=== PATIENT | female | born 1955 | race Caucasian/White ===

== ENCOUNTER 2024-02-26 14:58 | Inpatient (IN) | payer MEDICARE, OTHER, SELFPAY ==
[2024-02-26 06:31] VITALS: BP 149/66
[2024-02-26 07:04] LABS: % Basophils 0.4 % (0-2); % Eosinophils 0.1 % (0-6); % Immature Granulocytes 0.4 % (0-0.5); % Lymphocytes 11.1 % (20.5-51.1); % Monocytes 4.9 % (1.7-9.3); % Neutrophils 83.1 % (42.2-75.2); Absolute Lymphocytes 0.9 10^3/uL (1.2-3.4); Absolute Monocytes 0.4 10^3/uL (0.1-0.6); Absolute Neutrophils 6.6 10^3/uL (1.4-6.5); Hematocrit 40.9 % (37.0-47.0); Hemoglobin 13.6 g/dL (12.0-16.0); Mean Corp Hgb Conc. 33.3 g/dL (33.0-37.0); Mean Corpuscular Hgb 30.5 pg (27.0-31.0); Mean Corpuscular Volume 91.7 fL (81.0-99.0); Mean Platelet Volume 11.6 fL (7.4-10.4); Nucleated Red Blood Cells % 0 %; Platelet Count 190 10^3/uL (130-400); Red Blood Cell Count 4.46 10^6/uL (4.20-5.40); Red Cell Dist. Width 13.4 % (11.5-14.5)
[2024-02-26 07:16] LABS: ALT (SGPT) 21 U/L (0-35); AST (SGOT) 27 U/L (14-36); Alkaline Phosphatase 93 U/L (38-126); Blood Urea Nitrogen 12 mg/dl (7-17); Calcium 10.1 mg/dl (8.4-10.2); Carbon Dioxide 22 mmol/L (22-30); Chloride 102 mmol/L (98-107); Glucose 134 mg/dl (70-99); Potassium 3.9 mmol/L (3.5-5.1); Sodium 137 mmol/L (135-145); Total Bilirubin 0.8 mg/dl (0.2-1.3); Total Protein 7.5 g/dl (6.3-8.2); eGFR > 60.00
--- NOTE | 2024-02-26 08:32 | ED.GENMED ---
History of Present Illness
General
Chief Complaint: Abdominal Pain
Source: patient
Exam Limitations: none
Time Seen by Provider: 02/26/24 07:59
Nursing documentation reviewed up to this point in time: agreed with
Travel History
Have you had any contact with someone who has COVID-19?: No
Do you have any symptoms of coronavirus? Fever > 100 degrees, chills, cough, shortness of breath, sore throat, loss of taste or smell, muscle aches, or headache?: No
History of Present Illness
History of Present Illness:
Patient is a 68-year-old female who presents to the ER for evaluation of intermittent right lower quadrant pain for the past 2 days she reports he got worse yesterday. She has vomited several times lats night. She last ate yesterday around 12 PM.
She denies any urinary frequency urgency or dysuria. AT times she feels a going to her back. She reports pain feels mostly in the right lower quadrant. She has never had any prior colonoscopy. She has chronic diarrhea. No prior abdominal
surgeries. denies injuries.
Review of Systems
Review of Systems
Allergies reviewed?: Yes
All Other Systems: ROS reviewed and negative except as documented in HPI and ROS
Constitutional: Reports no symptoms; Denies fever, fatigue or chills
Respiratory: Reports no symptoms
Cardiac: Reports no symptoms
ABD/GI: Reports abdominal pain, nausea and vomiting; Denies diarrhea or constipated
Musculoskeletal: Reports no symptoms
Skin: Reports no symptoms
Neurological: Reports no symptoms
Phy Exam
General Physical Exam
General Presentation: no apparent distress
General age: appears stated age
General Skin: warm and dry
General Habitus: normal
General Mental: alert
General Hydration: appears well hydrated
Gastrointestinal Exam
Gastrointestinal Exam: soft and other (minimal right sided tenderness )
Neurological Exam
Neurological Exam: alert and oriented x3
Course
Orders/Labs/Results
Orders:
Orders
02/26/24 06:44
CMP [Comprehensive Metabolic Panel] Urgent
Complete Blood Count/With Diff Urgent
02/26/24 08:32
Ondansetron Injectable [Zofran] 4 mg IV NOW STA
02/26/24 08:33
0.9% Sodium Chloride 1000 ml [Nss] 1,000 ml IV BOLUS
02/26/24 08:37
CT Abd/pel W Iv And Oral Contr Urgent
Comment:
Reason For Exam: rlq pain
Iohexol [Omnipaque] See Protocol PO NOW STA
02/26/24 08:59
UA Reflex to Culture [Urinalysis Reflex To Culture] Urgent
Date Specimen was Collected: 02/26/24
Time Specimen was Collected: 08:58
Urine Microscopic Reflex Cult Urgent
02/26/24 10:11
Ketorolac [Toradol] 15 mg IV NOW STA
02/26/24 12:56
Morphine Sulfate 2 mg IV NOW STA
02/26/24 14:24
EKG [Electrocardiogram (*1)] Stat
Reason for Study: QTc Monitoring
02/26/24 14:40
Admit/Transfer Patient As Directed
Co-Sign Provider:
Level of Care: Inpatient admission
Assign to:: Medical/Surgical
Physician / Group: melvin chauhan
Diagnosis: abdominal pain
Reason for Hospitalization: abdominal pain
Expected length of stay greater than two midnights?: Yes
ELOS- Estimated Length of Stay in days: 3
I certify the patient meets the requirements for IP care: Yes
Code Status As Directed
Resuscitation Status: Full Code
02/26/24 14:50
Piperacillin/Tazo 3.375 Gram [Zosyn] 3.375 gram in 50 ml IV NOW
02/26/24 14:59
Norovirus by PCR Stat
WANDY Source: Feces/Stool
Specimen Description:
Stool For WBC Stat
WANDY Source: Feces/Stool
Specimen Description:
Abnormal Lab Results
02/26/24 02/26/24
06:44 08:59
MPV 11.6 H fL
(7.4-10.4)
Absolute Neuts (auto) 6.6 H 10^3/uL
(1.4-6.5)
Absolute Lymphs (auto) 0.9 L 10^3/uL
(1.2-3.4)
Neutrophils % 83.1 H %
(42.2-75.2)
Lymphocytes % 11.1 L %
(20.5-51.1)
Creatinine 0.5 L mg/dL
(0.6-1.0)
Glucose 134 H mg/dl
(70-99)
Urine Ketones 3+ A
(Negative)
Ur Occult Blood Reflex 3+ A
(Negative)
Urine Bilirubin 1+ A
(Negative)
Urine RBC 3-6 A /HPF
(0-2)
Urine Bacteria (Reflex) Few A
(Negative)
02/26/24 06:44
02/26/24 06:44
Vital Signs
Initial and Last Documented VS:
Initial Vital Signs
Temp Pulse Resp BP Pulse Ox
98.5 F 64 18 149/66 99
02/26/24 06:31 02/26/24 06:31 02/26/24 06:31 02/26/24 06:31 02/26/24 06:31
Last Documented Vital Signs
Temp Pulse Resp BP Pulse Ox
98.5 F 60 16 111/64 98
02/26/24 06:31 02/26/24 09:03 02/26/24 09:03 02/26/24 13:34 02/26/24 09:03
MDM/Problems Addressed
Differential Diagnosis Includes:
not limited to: Appendicitis diverticulitis UTI
MDM/Problems Addressed:
68 yr old female presents to the ER for evaluation of right lower quadrant pain. She has chronic diarrhea has never been to GI or had a colonoscopy. She has had pain in the right lower quadrant for the past 2 days had a lot of nausea and vomiting
last night. Patient was tender on exam requiring Toradol and morphine here. CAT scan heart no t visualize the appendix but no other signs of appendicitis CAT scan report does questionable rectal mass versus fecal material also possible splenic
mass. Patient does not feel that she can go home due to pain. labs unremarkable .
Case discussed with admitting hospitalist
*Radiology
Radiology exam reviewed: radiology read reviewed
*Pulse Oximetry
Patient hypoxic: no
*Critical Care Note
Total Time (30-74mins, 75-104mins- exclusive of procedures): Not Applicable
ED Attending Note
-
Portions of this chart may have been created with voice recognition software.� Occasional wrong word or��sound alike� substitutions may have occurred due to the inherent limitations of voice recognition software.
Discharge Plan
Departure
Patient Disposition: Admit
Date of Disposition: 02/26/24
Time of Disposition: 13:56
Admit to: Med/Surg
Admit to doctor: hospitalist
Presentation/result/management discussed w/ accepting MD/DO: Hospitalist
Patient with high blood pressure during this ER visit?: Yes
Condition: Fair
Covid-19: Not Applicable
Discharge Problem:
Abdominal pain
Interventions
Interventions:
*General Assessment Last Done: 02/26/24 08:55
*Neglect/Abuse Screening Last Done: 02/26/24 08:55
ED- Fall Risk Assessment Last Done: 02/26/24 08:57
*ED COVID-19 Vaccine History Last Done: 02/26/24 08:55
GG-Urcfea-Buauhwnpnc Assessment Last Done: 02/26/24 08:55
[2024-02-26 08:35] VITALS: BMI 21.0
[2024-02-26] MEDS: NSS 1000 IV ×2 (08:51→19:10)
[2024-02-26] MEDS: ZOFRAN 4 MG IV (08:52)
[2024-02-26] MEDS: OMNIPAQUE 50 ML PO (08:52)
[2024-02-26 09:03] VITALS: BP 92/74
[2024-02-26 09:39] LABS: Urine Albumin Trace (Neg - Trace); Urine Bilirubin 1+ (Negative); Urine Character Clear (Clear); Urine Color Yellow; Urine Glucose Negative (Negative); Urine Ketone 3+ (Negative); Urine Leukocyte Negative (Negative); Urine Nitrite Negative (Negative); Urine Occult Blood 3+ (Negative); Urine Urobilinogen Negative (Neg - 1+)
[2024-02-26] MEDS: TORADOL 15 MG IV (10:18)
[2024-02-26 12:09] LABS: Urine Mucus Moderate
[2024-02-26 12:11] LABS: Urine Bacteria Few (Negative)
[2024-02-26] MEDS: MORPHINE SULFATE 2 MG IV (13:12)
[2024-02-26 13:34] VITALS: BP 111/64
--- NOTE | 2024-02-26 14:19 | HPS.HSE ---
Family Physician
-
Family Physician: Ann Morales MD
Chief Complaint
-
Right lower quadrant pain
History of Present Illness
68-year-old female with no significant past medical history presented to the hospital with intermittent right lower quadrant pain for the past 2 days. It got worse last night . She vomited couple times . Patient has chronic diarrhea . Stated
poor appetite .episode.patient denied fever, chills, chest pain, short of breath .patient denied dysuria hematuria. She has never had any prior colonoscopy.
CT with impression of No definitive acute pathology of the abdomen or pelvis identified.
Questionable rectal mass versus fecal material is surrounding fluid due to diarrhea. This would better be evaluated by visualization or barium enema. Clinical correlation recommended.
Nonvisualization the appendix. No secondary findings to suggest acute appendicitis.
Hepatic cysts.
Possible splenic mass. Further evaluation with a nonurgent ultrasound or MRI examination recommended.
Bilateral too small to characterize hypodense renal lesions likely benign cysts.
2 large adjacent left ovarian cysts. A septated cyst cannot be excluded. This would better be evaluated by pelvic ultrasound..
Myomatous uterus.
Admitting for further management
Medical History
Past Medical History
Past Medical History: Reports None
Past Surgical History: Reports None
Social History
Tobacco: Non-smoker
Alcohol: None
Drug: None
Family History
Family History: Not pertinent
Allergies / Home Medications
Allergies reflects when Allergies were last updated in [facility].
Home Medications with original date entered in [facility]
Allergy/Medication List:
Allergies
Allergy/AdvReac Type Severity Reaction Status Date / Time
No Known Allergies Allergy Unverified 02/26/24 06:31
Home Medications
No Meds [No Current Medications] 02/26/24
Review of Systems
-
Constitutional: Reports No Symptoms
EENT: Reports No Symptoms
Respiratory: Reports No Symptoms
Cardiac: Reports No Symptoms
Abdomen/GI: Reports Abdominal Pain, Nausea, Vomiting and Diarrhea
: Reports No Symptoms
Musculoskeletal: Reports No Symptoms
Skin: Reports No Symptoms
Neurological: Reports No Symptoms
Endocrine: Reports No Symptoms
Hematologic/Lymphatic: Reports No Symptoms
Psych: Reports No Symptoms
Physical Exam
Vital Signs
Vital Signs
Temp Pulse Resp BP Pulse Ox
98.5 F 60 16 111/64 98
02/26/24 06:31 02/26/24 09:03 02/26/24 09:03 02/26/24 13:34 02/26/24 09:03
Physical Exam
General: Well Developed, Well Nourished and No Apparent Distress
HEENT: NormoCephalic, Moist mucous membranes and Atraumatic
Respiratory: Clear
Cardiac: S1/S2 and Regular Rhythm; No Murmur or Rub
GI: Soft, Non Tender, Non Distended and Normal Bowel Sounds; No Organomegaly
Rectal: Deferred by Provider
Musculoskeletal: No Clubbing, No Cyanosis and No Edema
Skin: No Rash
Neuro: AO x 3 and Nonfocal/grossly intact
Psych: Calm
Laboratory Results
-
02/26/24 06:44
02/26/24 06:44
Laboratory Results
Total Bilirubin 0.8 mg/dl (0.2-1.3) 02/26/24 06:44
AST 27 U/L (14-36) 02/26/24 06:44
ALT 21 U/L (0-35) 02/26/24 06:44
Alkaline Phosphatase 93 U/L (38-126) 02/26/24 06:44
Data Reviewed
-
CT Scan: Report Reviewed by me
Lab Data: Labs Reviewed by me
Impression/Plan
-
# Right lower quadrant pain associate with nausea vomiting/chronic diarrhea likely rectal mass vs, diarrhea vs splenic mass
-CT abdomen pelvis with impression questionable rectal mass versus fecal material is surrounding fluid due to diarrhea. This would better be evaluated by visualization or barium enema. Clinical correlation recommended.Nonvisualization the appendix.
No secondary findings to suggest acute appendicitis.Hepatic cysts.of Possible splenic mass. Further evaluation with a nonurgent ultrasound or MRI examination recommended.Bilateral too small to characterize hypodense renal lesions likely benign
cysts.2 large adjacent left ovarian cysts. A septated cyst cannot be excluded. This would better be evaluated by pelvic ultrasound.Myomatous uterus.
-iv Dilaudid continued for pain
-Zofran prn for n/v
-clear liquid
-stool for culture, norovirus
-fluids continued for hydration
-Zosyn prophylactically started for abdominal pain
-GI consulted
#DVT prophylaxis
-Lovenox
#CODE status
-full code
--- NOTE | 2024-02-26 14:24 | W.PN.UPDATE ---
Update Note
Progress Note Update
This serves as an addendum to the H&P dictated by Jett Sierra on 02/26/2024.
I saw and examined the patient.
The KILN FURNITURE SAW TENDER or PA's note was reviewed and I agree with the note.
Comment:
Patient is 68 years old female with no significant past medical history came into the hospital with abdominal pain. Patient has abdominal pain diffuse but mostly in the right lower quadrant, moderate intensity over the last couple of days
associated with nausea and vomiting and diarrhea. She does have some chronic diarrhea although has slowed down over the last 2 days. Denies fevers or chills. Denies any recent antibiotic use. Denies any recent travel but she has traveled to
[facility] many years back and said that she has caught some parasites in the past. Denies any chest pain or shortness of breath. She does tell me that she does not use many medications and usually try to do natural treatment but does follow-up with
primary care as outpatient and she has been told to do a colonoscopy but she has not done it yet. In the ER, CT scan of the abdomen shows possible rectal mass, ovarian cyst, possible splenic mass. She was referred to hospitalist for further
evaluation.
Physical exam:
General: Well Developed, Well Nourished and No Apparent Distress
HEENT: Normocephalic, Atraumatic and Moist Mucous Membranes
Respiratory: Clear to Auscultation; Negative Wheezes, Rales or Rhonchi
Cardiac: Regular Rhythm and S1/S2
GI: Soft, mild tender and Nondistended
Musculoskeletal: No Clubbing, No Cyanosis and No Edema
Neuro: Awake, Alert and Oriented
Psych: Calm
A/P:
Abdominal pain N/V/D + ?rectal mass--> clear liquid diet, IV fluids, empiric antibiotics, pain control, stool cultures and c diff. GI consult.
[2024-02-26] MEDS: ZOSYN 50 IV (15:04)
--- NOTE | 2024-02-26 15:41 | CON.GI ---
Addendum entered and electronically signed by Neel Cardenas MD 02/26/24 19:10:
I saw and examined the patient.
The CASTING PLUG ASSEMBLER or PA's note was reviewed and I agree with the note.
Comment:
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 The rlq d/c worsened on friday then improved then worsened. No fever, no vomiting. CT with stool vs lesion in left colon/rectum.
abd: mild rlq tenderness
impression:
rlq pain
diarrhea
plan:
stool studies
d/w pt who has never had a colonoscopy and she will ultimately agree to this but is hesitant now.
appendix not visualized but symptoms are more chronic and likely more colonic in nature. if pain worsens consider surgical consult
pain meds
check celiac
Original Note:
Consultation
-
Date/Time Consultation Requested: 02/26/24 @ 15:05
Date/Time Consultation Performed: 02/26/24 @ 15:45
Requesting Provider: EDNA Ashby
Performing Provider: EDNA Dalton; Dr. Neel Cardenas
Reason for Consultation: ?rectal mass
Medical History
Chief Complaint / HPI
Chief Complaint: RLQ pain
History of Present Illness:
The patient is a 68-year-old female with no significant past medical history who presented to the emergency room with complaints of right lower quadrant pain. We are being asked to evaluate for a possible rectal mass on CT scan. The pt reports on
Friday she developed pain to her RLQ. This was similar to a gas pain and initally felt severe but it improved. She went to sleep and had breakfast yesterday morning feeling fine but then around lunch time developed pain again. She reports the pain
continued throughout the night and kept her up most of the night. She reports at times the pain was radiating to her back. She had similar pain about 1 month ago but this resolved on its own. She notes she was doing a keto diet recently but no other
changes or new medications. She does get pain with movement and walking at times. She also reports having had some nausea and dry heaving but she was not eating much the last 24 hours therefore did not vomit. She admits she has had diarrhea
chronically for many years. She has never had a formal GI evaluation nor a colonoscopy as she prefers holistic approach to medicine. She has had up to 8 bowel movements daily with liquid stool. She does have some softer more formed stools depending
on what she eats but overall they are loose. She reports a history of hyperthyroidism but was never treated. She notes the majority of her GI problems started after traveling to [place] in 2012 where she contracted parasites which was subsequently
treated. She notes some time later she had eaten bad peanut butter and had a recurrent GI bug. She does not use antidiarrheals. She has tried to eliminated gluten and lactose with no improvement. She denies weight loss or loss of appetite. She
denies any dysphagia, odynophagia, or heartburn. She denies any overt melena or hematochezia but has had occasional blood with wiping in the past thought to be hemorrhoidal related. She denies any use of blood thinners or NSAID's. She denies any FH
CRC or other GI cancers or disorders. She denies any prior EGD or colonoscopy. In the ER she underwent a CT of the abdomen and pelvis which showed no definitive acute pathology in the abdomen or pelvis but does show a questionable rectal mass versus
fecal material with surrounding fluid due to diarrhea. Other nonurgent findings suggest hepatic cyst, a possible splenic mass, with bilateral small hypodense renal lesions likely benign cyst, and 2 large adjacent ovarian cysts with a myomatous
uterus. Routine labs on admission showed no significant findings aside from a mildly elevated glucose of 134. UA did show ketones and occult blood with no signs of UTI. EKG showed sinus bradycardia at a rate of 52 bpm otherwise normal. She was
placed on IV pain medication along with IV antiemetics, clear liquid diet, and admitted for further evaluation by GI. She was placed on Zosyn prophylactically due to her abdominal pain and started on IV fluids for hydration. Stool studies are
pending for diarrhea.
Past Medical History
Past Medical History: Other (hyperthyroid (not treated per pt))
Past Surgical History: None
Social History
Tobacco: Non-Smoker
Alcohol: None
Drug: None
Living: With Family
Family History
Family History: Reviewed & Not Pertinent
Allergies / Home Medications
Allergy/AdvReac Type Severity Reaction Status Date / Time
No Known Allergies Allergy Unverified 02/26/24 06:31
�Medication �Instructions �Recorded
No Meds [No Current Medications] 02/26/24
Review of Systems
-
History Source: Patient
Constitutional: Reports Sleep Disturbance
EENT: Reports No Symptoms
Respiratory: Reports No Symptoms
Cardiac: Reports No Symptoms
Abdomen/GI: Reports Abdominal Pain, Nausea and Diarrhea
: Reports No Symptoms
Musculoskeletal: Reports No Symptoms
Skin: Reports No Symptoms
Neurological: Reports No Symptoms
Vital Signs
Temp Pulse Resp BP Pulse Ox
98.5 F 60 16 111/64 98
02/26/24 06:31 02/26/24 09:03 02/26/24 09:03 02/26/24 13:34 02/26/24 09:03
Physical Exam
Exam
General: Well Developed, Well Nourished and No Apparent Distress
HEENT: Normocephalic, Anicteric and Atraumatic
Respiratory: Clear
Cardiac: S1/S2 and Regular Rhythm
Breast: Deferred by me
GI: Soft, Non Tender, Non Distended and Normal Bowel Sounds
Rectal: Other (pt declined)
Musculoskeletal: No Edema
Skin: Warm and Dry
Neuro: Awake, Alert and Oriented
Psych: Calm
Results
WBC 8.0 10^3/uL (4.8-10.8) 02/26/24 06:44
Hgb 13.6 g/dL (12.0-16.0) 02/26/24 06:44
Hct 40.9 % (37.0-47.0) 02/26/24 06:44
MCV 91.7 fL (81.0-99.0) 02/26/24 06:44
Plt Count 190 10^3/uL (130-400) 02/26/24 06:44
Absolute Neuts (auto) 6.6 10^3/uL (1.4-6.5) H 02/26/24 06:44
Sodium 137 mmol/L (135-145) 02/26/24 06:44
Potassium 3.9 mmol/L (3.5-5.1) 02/26/24 06:44
Chloride 102 mmol/L (98-107) 02/26/24 06:44
Carbon Dioxide 22 mmol/L (22-30) 02/26/24 06:44
BUN 12 mg/dl (7-17) 02/26/24 06:44
Creatinine 0.5 mg/dL (0.6-1.0) L 02/26/24 06:44
Calcium 10.1 mg/dl (8.4-10.2) 02/26/24 06:44
Total Bilirubin 0.8 mg/dl (0.2-1.3) 02/26/24 06:44
AST 27 U/L (14-36) 02/26/24 06:44
ALT 21 U/L (0-35) 02/26/24 06:44
Alkaline Phosphatase 93 U/L (38-126) 02/26/24 06:44
Diagnostic Image Results:
02/26/24 CT A/P: IMPRESSION: 'No definitive acute pathology of the abdomen or pelvis identified. Questionable rectal mass versus fecal material is surrounding fluid due to diarrhea. This would better be evaluated by visualization or barium enema.
Clinical correlation recommended. Nonvisualization the appendix. No secondary findings to suggest acute appendicitis. Hepatic cysts. Possible splenic mass. Further evaluation with a nonurgent ultrasound or MRI examination recommended. Bilateral too
small to characterize hypodense renal lesions likely benign cysts. 2 large adjacent left ovarian cysts. A septated cyst cannot be excluded. This would better be evaluated by pelvic ultrasound. Myomatous uterus. '
Prior GI Procedures:
EGD: none
Colonoscopy: none
Assessment / Plan
-
The patient is a 68-year-old female with no significant past medical history who presented to the emergency room with complaints of right lower quadrant pain, found to have a possible rectal mass on CT scan. She notes chronic diarrhea for many years
after traveling to [facility] and having a parasite which was treated. She has not had any formal GI care and has self managed at home. She has never had a colonoscopy. She had acute onset of RLQ 2 days ago with associated nausea and dry heaves. She
denies weight loss. No family history of CRC. She has known uterine cysts which she has had ultrasounds for. She is not anemic with essentially no other lab abnormalities. She is in no acute distress at this time with no pain on exam to suggest
acute appendicitis. She declined rectal exam.
Problem list:
-abdominal pain, RLQ
-?rectal mass v fecal burden
-diarrhea, chronic
-hepatic, kidney, and uterine cysts on CT scan
-?splenic mass/cyst
-hx hyperthyroidism
Recommendations:
-Etiology of CT findings concerning for a rectal mass, possibly malignant v benign etiology v less likely fecal burden v other. Other non-urgent findings as above.
---The pt has never had a colonoscopy with no know family hx of CRC.
-At this time would recommend a colonoscopy for further evaluation. To determine if this needs to be done inpt v outpt. Will review with Dr. Cardenas
-To consider barium enema to further characterize the rectal mass
-Unclear etiology behind her pain as the appendix was not visualized but she is non-tender on exam in the RLQ making appendicitis less likely. No other acute findings on CT imaging. Could this be IBD v IBS given her chronic diarrhea?
-Would likely need an MRI for further characterization of splenic lesion as per radiology recommendations which can be done outpatient
-Will check infectious stool studies along with pancreatic elastase, fecal fat, and fecal calprotectin given chronicity of diarrhea
-Check TSH and celiac panel
-PRN analgesics as per hospitalist
-OK for CLD for now pending determination of colonoscopy timing
-Further plan pending above
Data Reviewed
-
CT Scan: Report Reviewed by me and Discussed with Physician
-
-
Thank you for consultation and allowing me to participate in the patient's care. Please call the tar and ammonia pump operator GI physician during the after hours with any questions or concerns.
[2024-02-26] MEDS: DILAUDID 0.5 MG IV ×2 (17:17→21:32)
[2024-02-26 18:06] VITALS: BP 116/64
[2024-02-26 20:50] LABS: TSH < 0.02 uIU/ml (0.47-4.68)
[2024-02-26 21:11] LABS: IgA 132 mg/dl (70-400)
[2024-02-26 23:19] VITALS: BP 118/58
[2024-02-27 05:59] LABS: Hematocrit 32.7 % (37.0-47.0); Hemoglobin 11.4 g/dL (12.0-16.0); Mean Corp Hgb Conc. 34.9 g/dL (33.0-37.0); Mean Corpuscular Hgb 31.4 pg (27.0-31.0); Mean Corpuscular Volume 90.1 fL (81.0-99.0); Platelet Count 156 10^3/uL (130-400); Red Blood Cell Count 3.63 10^6/uL (4.20-5.40); Red Cell Dist. Width 13.6 % (11.5-14.5); White Blood Cell Count 8.8 10^3/uL (4.8-10.8)
[2024-02-27 06:53] LABS: Blood Urea Nitrogen 12 mg/dl (7-17); Calcium 9.1 mg/dl (8.4-10.2); Carbon Dioxide 23 mmol/L (22-30); Chloride 105 mmol/L (98-107); Estimated Creatinine Clearance 84 ml/min; Glucose 88 mg/dl (70-99); Potassium 3.9 mmol/L (3.5-5.1); Sodium 137 mmol/L (135-145); eGFR > 60.00
[2024-02-27] MEDS: ZOSYN IV ×2 (07:04)
[2024-02-27] MEDS: NSS 1000 IV (08:18)
[2024-02-27 08:24] VITALS: BP 116/79
--- NOTE | 2024-02-27 08:40 | W.PN.HOSP.TC ---
Today's Communication/Plan
-
IV fluids. IV antibiotics. Pain control.
Assessment / Plan
Assessment / Plan
Physical exam:
General: Well Developed, Well Nourished and No Apparent Distress
HEENT: Normocephalic, Atraumatic and Moist Mucous Membranes
Respiratory: Clear to Auscultation; Negative Wheezes, Rales or Rhonchi
Cardiac: Regular Rhythm and S1/S2
GI: Soft, Nontender and Nondistended
Musculoskeletal: No Clubbing, No Cyanosis and No Edema
Neuro: Awake, Alert and Oriented
Psych: Calm
A/P:
# Right lower quadrant pain associate with nausea vomiting/chronic diarrhea likely rectal mass vs, diarrhea vs splenic mass
-CT abdomen pelvis with impression questionable rectal mass versus fecal material is surrounding fluid due to diarrhea. This would better be evaluated by visualization or barium enema. Clinical correlation recommended.Nonvisualization the appendix.
No secondary findings to suggest acute appendicitis.Hepatic cysts.of Possible splenic mass. Further evaluation with a nonurgent ultrasound or MRI examination recommended.Bilateral too small to characterize hypodense renal lesions likely benign
cysts.2 large adjacent left ovarian cysts. A septated cyst cannot be excluded. This would better be evaluated by pelvic ultrasound.Myomatous uterus.
-iv Dilaudid continued for pain
-Zofran prn for n/v
-clear liquid
-stool for culture, norovirus--> C. difficile negative, rest of stool cultures pending.
-fluids continued for hydration
-Zosyn prophylactically started for abdominal pain
-GI consulted--> appreciated input
-Patient told me GI yesterday discussed about possibility of colonoscopy and also wanted GI today (another GI) to discuss with her again. Will follow-up further GI recommendations.
-Might be able to advance diet later down the road +/- abx.
#DVT prophylaxis
-Lovenox
#CODE status
-full code
Anticipated Discharge: 24 - 48 hours
Subjective/Interval History
-
Date of Service: February 27, 2024
Patient has less abdominal pain today. No nausea or vomiting. Afebrile
Objective Data
-
Labs:
Laboratory Results
02/27/24
05:50
WBC 8.8
Hgb 11.4 L
Hct 32.7 L
Plt Count 156
Sodium 137
Potassium 3.9
Chloride 105
Carbon Dioxide 23
BUN 12
Creatinine 0.6
Glucose 88
Calcium 9.1
Vital Signs:
Vital Signs
Temp Pulse Resp BP Pulse Ox
97.9 F 64 16 116/79 98
02/27/24 08:24 02/27/24 08:24 02/27/24 08:24 02/27/24 08:24 02/27/24 08:24
I&O
02/26/24 02/27/24 02/28/24
06:59 06:59 06:59
Intake Total 1000 / 1000
Balance 1000 / 1000
[2024-02-27] MEDS: ZOSYN 50 IV ×3 (10:06→21:01)
[2024-02-27 13:05] VITALS: BP 130/73; BMI 20.7
--- NOTE | 2024-02-27 13:36 | PTCARENOTE ---
pt admitted to 2N from ED this afternoon. pt aaox3, pleasant and is receiving IV abx and IVF at this time for hydration. pt states only having a 2/10 abd pain at this time. pt states she does not usually take medication but is agreeable to taking
the abx. pt requesting stop of IVF at this time. pt is Sinus gale on tele and states she does run low HR reyes. pt is on a clear liquid diet at this time. pt oriented to the unit, call light and phone.
--- NOTE | 2024-02-27 19:04 | W.PN.GI.CBS2 ---
Today's Communication / Plan
-
-Etiology of CT findings concerning for a rectal mass, possibly malignant v benign etiology v less likely fecal burden v other. Other non-urgent findings as above.
---The pt has never had a colonoscopy with no know family hx of CRC.
-
Rectal exam-no mass palpated in the distal rectum
Heme neg stool
Will get AXR to r/o stool burden, if negative-inpatient colonoscopy
If stool burden noted, will start on bowel regiment with OP colonoscopy
Stool c diss, giardia neg, cx pendig, few wbc noted
celiac panel pending
OK for full liquit diet
Will follow
Assessment / Plan
-
The patient is a 68-year-old female with no significant past medical history who presented to the emergency room with complaints of right lower quadrant pain, found to have a possible rectal mass on CT scan. She notes chronic diarrhea for many years
after traveling to [facility] and having a parasite which was treated. She has not had any formal GI care and has self managed at home. She has never had a colonoscopy. She had acute onset of RLQ 2 days ago with associated nausea and dry heaves. She
denies weight loss. No family history of CRC. She has known uterine cysts which she has had ultrasounds for. She is not anemic with essentially no other lab abnormalities. She is in no acute distress at this time with no pain on exam to suggest
acute appendicitis. She declined rectal exam.
Problem list:
-abdominal pain, RLQ
-?rectal mass v fecal burden
-diarrhea, chronic
-hepatic, kidney, and uterine cysts on CT scan
-?splenic mass/cyst
-hx hyperthyroidism
Recommendations:
-Etiology of CT findings concerning for a rectal mass, possibly malignant v benign etiology v less likely fecal burden v other. Other non-urgent findings as above.
---The pt has never had a colonoscopy with no know family hx of CRC.
-
Rectal exam-no mass palpated in the distal rectum
Heme neg stool
Will get AXR to r/o stool burden, if negative-inpatient colonoscopy
If stool burden noted, will start on bowel regiment with OP colonoscopy
Stool c diss, giardia neg, cx pendig, few wbc noted
celiac panel pending
OK for full liquit diet
Will follow
Subjective
Subjective
Date of Service: February 27, 2024
Had small hard stool today, on clears
Objective
Data Reviewed
Laboratory Data:
Laboratory Results
02/27/24 05:50
02/27/24 05:50
Laboratory Results
Total Bilirubin 0.8 mg/dl (0.2-1.3) 02/26/24 06:44
AST 27 U/L (14-36) 02/26/24 06:44
ALT 21 U/L (0-35) 02/26/24 06:44
Alkaline Phosphatase 93 U/L (38-126) 02/26/24 06:44
Vital Signs and I&O:
Vital Signs
Temp Pulse Resp BP Pulse Ox
98.2 F 68 16 130/73 98
02/27/24 13:05 02/27/24 13:05 02/27/24 13:05 02/27/24 13:05 02/27/24 13:14
I&O
02/26/24 02/27/24 02/28/24
06:59 06:59 06:59
Intake Total 1000 / 1000 400 / 400
Balance 1000 / 1000 400 / 400
Physical Exam
Physical Exam
GI: Soft, Non Distended and Non Tender
Rectal: Other (vault empty.No mass noted)
[2024-02-27] MEDS: DILAUDID 0.5 MG IV (20:49)
[2024-02-27] MEDS: FLUSH (NSS) 2 FLUSH IV ×2 (20:51→21:01)
[2024-02-27 23:14] VITALS: BP 122/59
[2024-02-28] MEDS: ZOSYN 50 IV (04:43)
[2024-02-28] MEDS: FLUSH (NSS) 2 FLUSH IV (04:44)
[2024-02-28 07:00] VITALS: BP 143/75
--- NOTE | 2024-02-28 07:17 | W.PN.HOSP.TC ---
Today's Communication/Plan
-
Plan for x-ray of the abdomen.
Assessment / Plan
Assessment / Plan
Physical exam:
General: Well Developed, Well Nourished and No Apparent Distress
HEENT: Normocephalic, Atraumatic and Moist Mucous Membranes
Respiratory: Clear to Auscultation; Negative Wheezes, Rales or Rhonchi
Cardiac: Regular Rhythm and S1/S2
GI: Soft, tender and Nondistended
Musculoskeletal: No Clubbing, No Cyanosis and No Edema
Neuro: Awake, Alert and Oriented
Psych: Calm
A/P:
Abdominal pain and rectal mass versus fecal burden:
Off IV fluids
On full liquid diet per GI
Continue pain control
Seen reviewed CT of the abdomen
Appreciate GI consult
Plan for x-ray of the abdomen today and per GI if negative then inpatient but if positive then aggressive bowel regimen and outpatient colonoscopy. Either or she will require colonoscopy- discussed with her. Follow-up further GI recommendations.
C. difficile negative, Giardia negative, norovirus negative, stool culture pending, celiac panel pending
Follow symptomatic care and workup
Stop antibiotics today
Chronic diarrhea:
GI evaluating her
Anemia:
Monitor hemoglobin as outpatient
DVT prophylaxis
-Lovenox
#CODE status
-full code
Anticipated Discharge: 24 - 48 hours
Subjective/Interval History
-
Date of Service: February 28, 2024
Patient is having more abdominal pain today. She typically moves her bowels several times a day. No fever.
Objective Data
-
Vital Signs:
Vital Signs
Temp Pulse Resp BP Pulse Ox
98.4 F 57 18 122/59 95
02/27/24 23:14 02/27/24 23:14 02/27/24 23:14 02/27/24 23:14 02/27/24 23:14
I&O
02/27/24 02/28/24 02/29/24
06:59 06:59 06:59
Intake Total 1000 / 1000 980 / 980
Balance 1000 / 1000 980 / 980
[2024-02-28] MEDS: MIRALAX 17 GRAMS PO (09:59)
--- NOTE | 2024-02-28 11:10 | PTCARENOTE ---
Pt given miralax this am and also offered PRN Senokot, however pt declined. Pain across abd however pt states that it is different pain than yesterday. Will cont to monitor.
[2024-02-28 15:00] VITALS: BP 129/67
[2024-02-28] MEDS: CITROMA 300 ML PO (16:03)
--- NOTE | 2024-02-28 20:02 | W.PN.GI.CBS2 ---
Today's Communication / Plan
-
Rectal exam-no mass palpated in the distal rectum
Heme neg stool
Abdominal x-ray showing large amount of fecal material throughout the colon and mild distention of the stomach.
Will start with mucus molasses enema and also magnesium citrate to clear out the right colon.
After cleanout, plan is for colonoscopy early next week
Stool c diff, giardia neg, cx pending, few wbc noted
celiac panel pending
OK to advance to low residue diet
Will follow
Assessment / Plan
-
The patient is a 68-year-old female with no significant past medical history who presented to the emergency room with complaints of right lower quadrant pain, found to have a possible rectal mass on CT scan. She notes chronic diarrhea for many years
after traveling to [facility] and having a parasite which was treated. She has not had any formal GI care and has self managed at home. She has never had a colonoscopy. She had acute onset of RLQ 2 days ago with associated nausea and dry heaves. She
denies weight loss. No family history of CRC. She has known uterine cysts which she has had ultrasounds for. She is not anemic with essentially no other lab abnormalities. She is in no acute distress at this time with no pain on exam to suggest
acute appendicitis. She declined rectal exam.
Problem list:
-abdominal pain, RLQ
-?rectal mass v fecal burden
-diarrhea, chronic
-hepatic, kidney, and uterine cysts on CT scan
-?splenic mass/cyst
-hx hyperthyroidism
Recommendations:
-Etiology of CT findings concerning for a rectal mass, possibly malignant v benign etiology v less likely fecal burden v other. Other non-urgent findings as above.
---The pt has never had a colonoscopy with no know family hx of CRC.
-
Rectal exam-no mass palpated in the distal rectum
Heme neg stool
Abdominal x-ray showing large amount of fecal material throughout the colon and mild distention of the stomach.
Will start with mucus molasses enema and also magnesium citrate to clear out the right colon.
After cleanout, plan is for colonoscopy early next week
Stool c diff, giardia neg, cx pending, few wbc noted
celiac panel pending
OK to advance to low residue diet
Will follow
Subjective
Subjective
Date of Service: February 28, 2024
Patient without any abdominal pain, nausea or vomiting. No significant bowel movements.
Objective
Data Reviewed
Laboratory Data:
Laboratory Results
02/27/24 05:50
02/27/24 05:50
Laboratory Results
Total Bilirubin 0.8 mg/dl (0.2-1.3) 02/26/24 06:44
AST 27 U/L (14-36) 02/26/24 06:44
ALT 21 U/L (0-35) 02/26/24 06:44
Alkaline Phosphatase 93 U/L (38-126) 02/26/24 06:44
Vital Signs and I&O:
Vital Signs
Temp Pulse Resp BP Pulse Ox
99.0 F 71 18 129/67 98
02/28/24 15:00 02/28/24 15:00 02/28/24 15:00 02/28/24 15:00 02/28/24 15:00
I&O
02/27/24 02/28/24 02/29/24
06:59 06:59 06:59
Intake Total 1000 / 1000 980 / 980 480 / 480
Balance 1000 / 1000 980 / 980 480 / 480
Physical Exam
Physical Exam
GI: Soft and Non Distended
[2024-02-28 23:13] VITALS: BP 112/58
[2024-02-29 00:28] LABS: Endomysial IgA Antibody Titer <1:10 (<1:10)
[2024-02-29 04:14] LABS: Fat, Fecal - Neutral Normal (Normal); Fat, Fecal - Split Normal (Normal)
[2024-02-29 07:57] VITALS: BP 117/71
[2024-02-29] MEDS: MIRALAX 17 GRAMS PO (08:06)
--- NOTE | 2024-02-29 08:45 | W.PN.HOSP.TC ---
Today's Communication/Plan
-
Bowel regimen. Pain control. Plan for colonoscopy as inpatient.
Assessment / Plan
Assessment / Plan
Physical exam:
General: Well Developed, Well Nourished and No Apparent Distress
HEENT: Normocephalic, Atraumatic and Moist Mucous Membranes
Respiratory: Clear to Auscultation; Negative Wheezes, Rales or Rhonchi
Cardiac: Regular Rhythm and S1/S2
GI: Soft, tender and Nondistended
Musculoskeletal: No Clubbing, No Cyanosis and No Edema
Neuro: Awake, Alert and Oriented
Psych: Calm
A/P:
Abdominal pain and rectal mass versus fecal burden (likely the latter, but she has never had a colonoscopy and continues to have abdominal symptoms):
Off IV fluids
On low residue diet per GI
Continue pain control
Seen reviewed CT of the abdomen. Seen review x-ray of the abdomen.
GI ordered aggressive bowel regimen last evening.
Appreciate GI consult and follow-up.
C. difficile negative, Giardia negative, norovirus negative, stool culture pending, celiac panel pending.
Few WBC on stools.
Off antibiotics
Discussed with patient today and she tells me GI told her they will do colonoscopy as inpatient on Friday.
Continue bowel regimen per GI.
Discussed with RN.
Chronic diarrhea:
GI evaluating her and workup in progress.
Anemia:
Last hemoglobin 11.4
Monitor hemoglobin in a.m.
DVT prophylaxis
-Lovenox 40 mg SQ
#CODE status
-full code
Anticipated Discharge: > 48 hours
Subjective/Interval History
-
Date of Service: February 29, 2024
Patient still having moderate intensity diffuse crampy abdominal pain today. She had enemas last evening but she did not think she did well with the magnesium citrate in terms of side effects. Remains afebrile
Objective Data
-
Vital Signs:
Vital Signs
Temp Pulse Resp BP Pulse Ox
98.9 F 82 14 117/71 97
02/29/24 07:57 02/29/24 07:57 02/29/24 07:57 02/29/24 07:57 02/29/24 07:57
I&O
02/28/24 02/29/24 03/01/24
06:59 06:59 06:59
Intake Total 980 / 980 1500 / 1500
Balance 980 / 980 1500 / 1500
--- NOTE | 2024-02-29 10:25 | PTCARENOTE ---
Pt wants to know if she can go to 4th floor to visit her who is admitted there. Please advise.
--- NOTE | 2024-02-29 11:25 | CM ---
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
Pharmacy is [facility] in [place] and PCP is Dr. Ann Morales. Discharge Plan of Care: Anticipate no needs at this time. Will continue to follow should needs change.
is currently a patient at .
--- NOTE | 2024-02-29 13:01 | W.PN.GI.CBS2 ---
Today's Communication / Plan
-
Abdominal x-ray showing large amount of fecal material throughout the colon and mild distention of the stomach.
Received milk of molasses enema and also magnesium citrate to clear out the right colon. She could not tolerate the magnesium citrate well.
Will put her on clear liquid diet for dinner
Give MiraLAX 1 L later today
No plan for colonoscopy Friday after full cleanout tomorrow
Stool c diff, giardia neg, cx pending, few wbc noted
celiac panel pending
Will follow
Assessment / Plan
-
The patient is a 68-year-old female with no significant past medical history who presented to the emergency room with complaints of right lower quadrant pain, found to have a possible rectal mass on CT scan. She notes chronic diarrhea for many years
after traveling to [facility] and having a parasite which was treated. She has not had any formal GI care and has self managed at home. She has never had a colonoscopy. She had acute onset of RLQ 2 days ago with associated nausea and dry heaves. She
denies weight loss. No family history of CRC. She has known uterine cysts which she has had ultrasounds for. She is not anemic with essentially no other lab abnormalities. She is in no acute distress at this time with no pain on exam to suggest
acute appendicitis. She declined rectal exam.
Problem list:
-abdominal pain, RLQ
-?rectal mass v fecal burden
-diarrhea, chronic
-hepatic, kidney, and uterine cysts on CT scan
-?splenic mass/cyst
-hx hyperthyroidism
Recommendations:
-Etiology of CT findings concerning for a rectal mass, possibly malignant v benign etiology v less likely fecal burden v other. Other non-urgent findings as above.
---The pt has never had a colonoscopy with no know family hx of CRC.
-
Rectal exam-no mass palpated in the distal rectum
Heme neg stool
Abdominal x-ray showing large amount of fecal material throughout the colon and mild distention of the stomach.
Received milk of molasses enema and also magnesium citrate to clear out the right colon. She could not tolerate the magnesium citrate well.
Will put her on clear liquid diet for dinner
Give MiraLAX 1 L later today
No plan for colonoscopy Friday after full cleanout tomorrow
Stool c diff, giardia neg, cx pending, few wbc noted
celiac panel pending
Will follow
Subjective
Subjective
Date of Service: February 29, 2024
Patient reports large bowel movement after liquid stool as well still feels full in the stomach.
Objective
Data Reviewed
Laboratory Data:
Laboratory Results
02/27/24 05:50
02/27/24 05:50
Laboratory Results
Total Bilirubin 0.8 mg/dl (0.2-1.3) 02/26/24 06:44
AST 27 U/L (14-36) 02/26/24 06:44
ALT 21 U/L (0-35) 02/26/24 06:44
Alkaline Phosphatase 93 U/L (38-126) 02/26/24 06:44
Vital Signs and I&O:
Vital Signs
Temp Pulse Resp BP Pulse Ox
98.9 F 82 14 117/71 97
02/29/24 07:57 02/29/24 07:57 02/29/24 07:57 02/29/24 07:57 02/29/24 08:00
I&O
02/28/24 02/29/24 03/01/24
06:59 06:59 06:59
Intake Total 980 / 980 1500 / 1500
Balance 980 / 980 1500 / 1500
Physical Exam
Physical Exam
GI: Soft, Non Distended and Non Tender
[2024-02-29 15:05] VITALS: BP 115/68
[2024-02-29] MEDS: GAVILAX 125 GM PO (16:44)
--- NOTE | 2024-02-29 17:56 | PTCARENOTE ---
Pt is refusing Lovonox injections. She doesn't like taking lots of medications. DVT video assigned to her for education. made aware.
[2024-02-29 23:21] VITALS: BP 103/65
[2024-03-01] MEDS: TYLENOL 650 MG PO ×4 (05:54→22:35)
[2024-03-01 07:20] VITALS: BP 107/68
[2024-03-01] MEDS: MIRALAX 17 GRAMS PO (08:18)
[2024-03-01 09:05] LABS: Hematocrit 38.5 % (37.0-47.0); Hemoglobin 12.8 g/dL (12.0-16.0); Mean Corp Hgb Conc. 33.2 g/dL (33.0-37.0); Mean Corpuscular Hgb 30.3 pg (27.0-31.0); Mean Corpuscular Volume 91.2 fL (81.0-99.0); Mean Platelet Volume 12.6 fL (7.4-10.4); Platelet Count 166 10^3/uL (130-400); Red Blood Cell Count 4.22 10^6/uL (4.20-5.40); Red Cell Dist. Width 13.3 % (11.5-14.5); White Blood Cell Count 14.6 10^3/uL (4.8-10.8)
[2024-03-01 09:37] LABS: Calprotectin, Fecal 48 ug/g (<=49)
[2024-03-01 09:39] LABS: Blood Urea Nitrogen 10 mg/dl (7-17); Calcium 9.6 mg/dl (8.4-10.2); Carbon Dioxide 29 mmol/L (22-30); Chloride 95 mmol/L (98-107); Estimated Creatinine Clearance 82 ml/min; Glucose 110 mg/dl (70-99); Potassium 3.8 mmol/L (3.5-5.1); Sodium 134 mmol/L (135-145); eGFR > 60.00
--- NOTE | 2024-03-01 10:00 | PTCARENOTE ---
Addendum entered by Tess Mcdonald RN 03/01/24 17:23:
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 first cup at 1700
Original Note:
pt blood draw done at bedside this morning by phlebotomy. pt vein collapsed per phlebotomy. pt with +2 swelling around R AC site. Arm wrapped with kerlix for compression and pt educated to elevate extremity to reduce swelling. pt offered compress if
needed. pt also given miralax this AM and she started bowel prep for day shift per [facility] records yesterday at 1655. order completed and pt educated on process.
--- NOTE | 2024-03-01 11:50 | W.PN.HOSP.TC ---
Today's Communication/Plan
-
Start back on antibiotics.
Follow white count.
Colonoscopy per GI.
Assessment / Plan
Assessment / Plan
A/P:
Abdominal pain and rectal mass versus fecal burden (likely the latter, but she has never had a colonoscopy and continues to have abdominal symptoms):
Off IV fluids
On low residue diet per GI
Continue pain control
Seen reviewed CT of the abdomen. Seen review x-ray of the abdomen.
GI ordered aggressive bowel regimen last evening.
Appreciate GI consult and follow-up.
C. difficile negative, Giardia negative, norovirus negative, stool culture pending, celiac panel pending.
Few WBC on stools.
Off antibiotics
Continue bowel regimen and colonoscopy plan per GI.
Leukocytosis -some abdominal discomfort yesterday. No tenderness today. Rising white count in the setting of stool burden and colon prep I would cover empirically with antibiotics due to worries of translocation and local stercoral colitis .
Chronic diarrhea:
GI evaluating her and workup in progress.
Anemia:
Last hemoglobin 11.4
DVT prophylaxis
-Lovenox 40 mg SQ
#CODE status
-full code
Anticipated Discharge: > 48 hours
Subjective/Interval History
-
Date of Service: March 01, 2024
Patient a bit of discomfort in abdomen yesterday but not today.
No nausea or vomiting. No fever or chills.
Objective Data
-
Labs:
Laboratory Results
03/01/24
08:24
WBC 14.6 H
Hgb 12.8
Hct 38.5
Plt Count 166
Sodium 134 L
Potassium 3.8
Chloride 95 L
Carbon Dioxide 29
BUN 10
Creatinine 0.6
Glucose 110 H
Calcium 9.6
Vital Signs:
Vital Signs
Temp Pulse Resp BP Pulse Ox
98.0 F 80 18 107/68 94
03/01/24 07:20 03/01/24 07:20 03/01/24 07:20 03/01/24 07:20 03/01/24 09:51
I&O
02/29/24 03/01/24 03/02/24
06:59 06:59 06:59
Intake Total 1500 / 1500 2160 / 2160
Balance 1500 / 1500 2160 / 2160
Review of Systems
-
Respiratory: Denies Trouble Breathing
Cardiac: Denies Chest Pain
Neuro: Denies Dizzy
Physical Exam
-
General: No Apparent Distress
HEENT: Moist Mucous Membranes
Respiratory: Clear to Auscultation
Cardiac: Regular Rhythm and S1/S2
GI: Soft and Nontender
Neuro: AO x 3
Data Reviewed
-
Labs: Labs Reviewed by me
[2024-03-01] MEDS: FLAGYL 500 MG 100 IV ×2 (12:31→20:41)
[2024-03-01] MEDS: ROCEPHIN 1000 MG IV (12:31)
[2024-03-01] MEDS: STERILE WATER FOR INJECTION 10 ML IV (12:31)
--- NOTE | 2024-03-01 13:13 | W.PN.GI.CBS2 ---
Today's Communication / Plan
-
-
Rectal exam-no mass palpated in the distal rectum
Heme neg stool
Abdominal x-ray showing large amount of fecal material throughout the colon and mild distention of the stomach.
Had multiple loose stool with magnesium citrate and MiraLAX in the last 2 days
Plan for colonoscopy tomorrow.
Stool c diff, giardia, cultures negative few wbc noted
Fecal fat, calprotectin in normal range, fecal elastase pending
celiac panel pending
Assessment / Plan
-
The patient is a 68-year-old female with no significant past medical history who presented to the emergency room with complaints of right lower quadrant pain, found to have a possible rectal mass on CT scan. She notes chronic diarrhea for many years
after traveling to [facility] and having a parasite which was treated. She has not had any formal GI care and has self managed at home. She has never had a colonoscopy. She had acute onset of RLQ 2 days ago with associated nausea and dry heaves. She
denies weight loss. No family history of CRC. She has known uterine cysts which she has had ultrasounds for. She is not anemic with essentially no other lab abnormalities. She is in no acute distress at this time with no pain on exam to suggest
acute appendicitis. She declined rectal exam.
Problem list:
-abdominal pain, RLQ
-?rectal mass v fecal burden
-diarrhea, chronic
-hepatic, kidney, and uterine cysts on CT scan
-?splenic mass/cyst
-hx hyperthyroidism
Recommendations:
-Etiology of CT findings concerning for a rectal mass, possibly malignant v benign etiology v less likely fecal burden v other. Other non-urgent findings as above.
---The pt has never had a colonoscopy with no know family hx of CRC.
-
Rectal exam-no mass palpated in the distal rectum
Heme neg stool
Abdominal x-ray showing large amount of fecal material throughout the colon and mild distention of the stomach.
Had multiple loose stool with magnesium citrate and MiraLAX in the last 2 days
Plan for colonoscopy tomorrow.
Stool c diff, giardia, cultures negative few wbc noted
Fecal fat, calprotectin in normal range, fecal elastase pending
celiac panel pending
Will follow
Subjective
Subjective
Date of Service: March 01, 2024
Patient reports abdominal soreness, better with Tylenol. Multiple loose stool with MiraLAX
Objective
Data Reviewed
Laboratory Data:
Laboratory Results
03/01/24 08:24
03/01/24 08:24
Laboratory Results
Total Bilirubin 0.8 mg/dl (0.2-1.3) 02/26/24 06:44
AST 27 U/L (14-36) 02/26/24 06:44
ALT 21 U/L (0-35) 02/26/24 06:44
Alkaline Phosphatase 93 U/L (38-126) 02/26/24 06:44
Vital Signs and I&O:
Vital Signs
Temp Pulse Resp BP Pulse Ox
98.0 F 80 18 107/68 94
03/01/24 07:20 03/01/24 07:20 03/01/24 07:20 03/01/24 07:20 03/01/24 09:51
I&O
02/29/24 03/01/24 03/02/24
06:59 06:59 06:59
Intake Total 1500 / 1500 2160 / 2160
Balance 1500 / 1500 2160 / 2160
Physical Exam
Physical Exam
GI: Soft and Non Distended
[2024-03-01 13:46] LABS: Pancreatic Elastase, Fecal <10 ug/g (>=100)
--- NOTE | 2024-03-01 14:56 | CM ---
Diagnostic workup continues for origin of RLQ abdominal pain. Colonoscopy scheduled for 03/02/24. Anticipate home with no needs. Will continue to follow should needs change.
[2024-03-01 15:05] VITALS: BP 108/73
[2024-03-01] MEDS: GAVILAX 238 GM PO (16:57)
[2024-03-01 23:14] VITALS: BP 123/66
[2024-03-02] MEDS: FLAGYL 500 MG 100 IV ×2 (04:03→13:26)
[2024-03-02] MEDS: TYLENOL 650 MG PO ×2 (05:03→14:55)
[2024-03-02 06:25] LABS: Hematocrit 35.2 % (37.0-47.0); Hemoglobin 12.5 g/dL (12.0-16.0); Mean Corp Hgb Conc. 35.5 g/dL (33.0-37.0); Mean Corpuscular Hgb 31.2 pg (27.0-31.0); Mean Corpuscular Volume 87.8 fL (81.0-99.0); Mean Platelet Volume 12.7 fL (7.4-10.4); Platelet Count 169 10^3/uL (130-400); Red Blood Cell Count 4.01 10^6/uL (4.20-5.40); Red Cell Dist. Width 13.2 % (11.5-14.5); White Blood Cell Count 12.7 10^3/uL (4.8-10.8)
[2024-03-02 07:00] VITALS: BP 113/72
[2024-03-02] MEDS: MIRALAX PO (08:10)
--- NOTE | 2024-03-02 09:27 | PTCARENOTE ---
pt sent down to GI lab at 0820 via stretcher this AM. sent with chart. pt npo since midnight and finished bowel prep for shift boss.
[2024-03-02 09:47] VITALS: BP 105/80
--- NOTE | 2024-03-02 09:52 | PTCARENOTE ---
per patient and her whiteboard pt had 7 bms overnight. this nurse did not witness but she said very light brown and loose.
[2024-03-02 10:00] VITALS: BP 109/74
--- NOTE | 2024-03-02 10:07 | W.DS.TRANS ---
DC Summary - Address Change Clerk
-
Discharge Instructions:
Discharge Diagnosis/Procedures Rectal mass
Diet Regular
Activity As tolerated
Driving Restrictions As prior to admission
Bathing Restrictions None
Instructions:
Stand-Alone Forms:
Changes to Home Medications: Yes
Discharge Medications:
DC Medications w/original date entered in [employer]
amoxicillin 875 mg-potassium clavulanate 125 mg tablet 1 tab PO BID #10 tabs 03/02/24
polyethylene glycol 3350 17 gram oral powder packet (HealthyLax) 17 g PO DAILY #30 ea 03/02/24
sennosides 8.6 mg-docusate sodium 50 mg tablet (Stool Softener-Stimulant Laxative) 1 tab PO BID constipation #60 tabs 03/02/24
Home Medication Changes
Medication-all of above
Pending Results: Yes (Rectal mass biopsy)
--- NOTE | 2024-03-02 10:08 | W.PN.HOSP.TC ---
Today's Communication/Plan
-
DC
Assessment / Plan
Assessment / Plan
A/P:
Abdominal pain and rectal mass versus fecal burden (likely the latter, but she has never had a colonoscopy and continues to have abdominal symptoms):
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
GI input noted. Colorectal surgery aware about the diagnosis and would follow as an outpatient.
Patient advised to continue with bowel regimen at home.
Leukocytosis -Rising white count in the setting of stool burden and colon prep I would cover empirically with antibiotics due to worries of translocation and local stercoral colitis .
C. difficile negative, Giardia negative, norovirus negative, stool culture pending, celiac panel pending.
Few WBC on stools.
Improving white count-will continue annual 5 days of Augmentin at home.
Chronic diarrhea:
Workup as above.
Anemia:
Last hemoglobin 11.4
DVT prophylaxis
-Lovenox 40 mg SQ
#CODE status
-full code
Discussed with GI regarding outpatient follow-up plan.
DC home when she tolerates diet today.
Total time of discharge 32 minutes
Anticipated Discharge: Today
Subjective/Interval History
-
Date of Service: March 02, 2024
s/p colo and rectal mass biopsy
Denies Abd pain , nausea or vomiting
Objective Data
-
Labs:
Laboratory Results
03/02/24
05:29
WBC 12.7 H
Hgb 12.5
Hct 35.2 L
Plt Count 169
Vital Signs:
Vital Signs
Temp Pulse Resp BP Pulse Ox
97.5 F 68 12 109/74 100
03/02/24 09:47 03/02/24 10:00 03/02/24 10:00 03/02/24 10:00 03/02/24 10:00
I&O
03/01/24 03/02/24 03/03/24
06:59 06:59 06:59
Intake Total 2159
Balance 2159
Review of Systems
-
Constitutional: Denies Fever
Respiratory: Denies Trouble Breathing
Cardiac: Denies Chest Pain
Physical Exam
-
General: No Apparent Distress
HEENT: Moist Mucous Membranes
GI: Soft, Nontender, Nondistended and Normal Bowel Sounds
Neuro: AO x 3
Psych: Calm; Negative Confused
[2024-03-02 10:15] VITALS: BP 118/65
[2024-03-02 10:25] VITALS: BP 107/69
--- NOTE | 2024-03-02 12:10 | CON.CRS ---
Consultation
-
Date/Time Consultation Requested: 03/02/2024, 10:30
Date/Time Consultation Performed: 03/02/2024, 11:15
Requesting Provider: Alfred Magallanes MD
Performing Provider: Nigel Villalobos MD
Reason for Consultation: rectal polyp
Medical History
-
Chief Complaint: RLQ pain
History of Present Illness:
68-year-old female with no past medical history presents to the ER on 02/26/2024 complaining of right lower quadrant pain for several days. This apparently happened a few weeks ago but had resolved. The patient states she has had chronic diarrhea
ever since she ate peanut butter in 2016 that 'was bad'. She is tried holistic measures to resolve her diarrhea.
A few days ago she had a sudden onset of right lower quadrant pain that made her dry heave. Given the extreme amount of pain she went to the ER. She denies any blood in her stool, fevers or chills, unintentional weight loss, problems with
urination or bloating. In the ER she underwent a CT of the abdomen and pelvis showed no acute pathology in the abdomen or pelvis, questionable rectal mass versus fecal material surrounded by fluid due to diarrhea and a possible splenic mass. Given
these findings she underwent a colonoscopy with gastroenterology today. A large polypoid lesion in the mid to proximal rectum was found. Dr. Villalobos was called into the room by Dr. Ochoa.
The patient denies any previous colonoscopy. She has never had abdominal surgery. She denies any use of blood thinners. We have been consulted for further surgical opinion.
Past Medical History
Past Medical History: Hyperthyroidism
Past Surgical History: None
Social History
Tobacco: Non-Smoker
Alcohol: None
Drug: None
Allergies / Home Medications
Allergy/AdvReac Type Severity Reaction Status Date / Time
No Known Allergies Allergy Unverified 02/26/24 06:31
�Medication �Instructions �Recorded �Confirmed �Type
amoxicillin 875 mg-potassium 1 tab PO BID #10 tabs 03/02/24 Rx
clavulanate 125 mg tablet
polyethylene glycol 3350 17 gram 17 g PO DAILY #30 ea 03/02/24 Rx
oral powder packet ([employer])
sennosides 8.6 mg-docusate sodium 1 tab PO BID constipation #60 tabs 03/02/24 Rx
50 mg tablet (Stool
Softener-Stimulant Laxative)
Review of Systems
-
History Source: Patient
Abdomen/GI: Abdominal Pain (right lower quadrant) and Diarrhea
A 10 point review of systems was completed, and was negative except as per HPI.
Physical Exam
Vital Signs
Temp 97.4 F 03/02/24 10:25
Pulse 71 03/02/24 10:25
Resp Rate 16 03/02/24 10:25
Blood pressure 107/69 03/02/24 10:25
SaO2 99 03/02/24 10:25
Body Mass Index (BMI) 20.7
Lab Results / Allergies
03/02/24 05:29
03/01/24 08:24
WBC 12.7 10^3/uL (4.8-10.8) H 03/02/24 05:29
Hgb 12.5 g/dL (12.0-16.0) 03/02/24 05:29
Hct 35.2 % (37.0-47.0) L 03/02/24 05:29
Plt Count 169 10^3/uL (130-400) 03/02/24 05:29
Abs Immat Gran (auto) 0.0 10^3/uL (0-0.05) 02/26/24 06:44
Neutrophils % 83.1 % (42.2-75.2) H 02/26/24 06:44
Allergy/AdvReac Type Severity Reaction Status Date / Time
No Known Allergies Allergy Unverified 02/26/24 06:31
Physical Exam
General: Well Developed, Well Nourished and No Apparent Distress
GI: Soft, Non Distended and Tender (RLQ)
Skin: Warm and Dry
Neuro: AO x 3
Psych: Calm
Data Reviewed
-
CT Scan: Image Personally Visualized and interpreted, Report Reviewed by me and Discussed with Patient
Labs: Labs Reviewed by me, Discussed with Physician and Discussed with Patient
Old Records: Reviewed
Assessment / Plan
-
Assessment: 68-year-old female with no significant past medical history presents to [facility] ER due to right lower quadrant pain and was found to have a questionable mass versus fecal material in her rectum. She underwent a colonoscopy
today and was found to have a large polypoid lesion in her rectum.
Plan:
Will await biopsy of rectal mass. No urgent surgery is indicated at this time. Further workup to be performed as an outpatient during an office visit and discussion with Dr. Villalobos. I have notified my office that she will be scheduled.Antibiotics
per hospitalist. Anticipate discharge today.
[2024-03-02] MEDS: STERILE WATER FOR INJECTION 10 ML IV (13:24)
[2024-03-02] MEDS: ROCEPHIN 1000 MG IV (13:25)
[2024-03-02 15:12] VITALS: BP 106/61
--- NOTE | 2024-03-02 15:19 | CM ---
Patient seen at bedside with patient son also present. Patient confirmed that her daughter was requesting she have VN; patient and son agreed to VN, CM updated Liaison and made her aware of plan. [facility] completed and signed form placed on chart. CM
will continue to follow for discharge planning needs.
Plan; home with VN
--- NOTE | 2024-03-02 16:07 | CM ---
Patient seen at bedside. IMM completed and signed form placed on chart. Patient for discharge home today. CM will continue to follow for discharge planning needs.
Plan; home with no needs.
--- NOTE | 2024-03-02 18:03 | PTCARENOTE ---
pt eating dinner and then said she will leave. IV access removed and discharge instructions printed.
[2024-03-03 14:24] LABS: tTG IgA Antibody 4.2 EU/ml (0-19); tTG IgG Antibody 6.7 EU/ml (0-19)
== END 2024-03-02 19:01 | disposition home or self-care (01) | DRG 392 ==
LOC: 2 NORTH 14:58
PROVIDERS: Internal Medicine; Nurse Practitioner; Nurse Practitioner Family; Registered Nurse; ADMITTING PHYSICIAN Hospitalist; ATTENDING PHYSICIAN Internal Medicine; CONSULT PHYSICIAN Internal Medicine; CONSULT PHYSICIAN Surgery; EMERGENCY PHYSICIAN Emergency Medicine; FAMILY PHYSICIAN Student in an Organized Health Care Education/Training Program
PROC: 0DBP8ZX Excision of Rectum, Via Natural or Artificial Opening Endoscopic, Diagnostic (ICD-10-PCS; 2024-03-02)
DX: K52.9 Noninfective gastroenteritis and colitis, unspecified (principal); K57.30 Diverticulosis of large intestine without perforation or abscess without bleeding; K62.1 Rectal polyp; K76.89 Other specified diseases of liver; D25.9 Leiomyoma of uterus, unspecified; N83.202 Unspecified ovarian cyst, left side; K64.9 Unspecified hemorrhoids; D49.0 Neoplasm of unspecified behavior of digestive system; N85.8 Other specified noninflammatory disorders of uterus; R16.1 Splenomegaly, not elsewhere classified; E05.90 Thyrotoxicosis, unspecified without thyrotoxic crisis or storm; D64.9 Anemia, unspecified; D72.829 Elevated white blood cell count, unspecified; N28.1 Cyst of kidney, acquired
CPT/HCPCS: 88305; 74018; 74177; 80048; 80053; 81003; 81015; 82653; 82705; 82784; 83516; 83993; 84443; 85025; 85027; 86231; 87045; 87046; 87324; 87328; 87329; 87427; 87449; 87798; 89055; 93005; 96361; 96365; 96375; 99285; Q9967

== ENCOUNTER → 2025-02-01 08:55 | Outpatient (REF) | payer MEDICARE, OTHER, SELFPAY ==
[2025-02-01 09:34] LABS: % Basophils 0.8 % (0-2); % Eosinophils 3.6 % (0-6); % Immature Granulocytes 0.2 % (0-0.5); % Lymphocytes 26.8 % (20.5-51.1); % Monocytes 10.1 % (1.7-9.3); % Neutrophils 58.5 % (42.2-75.2); Absolute Eosinophils 0.2 10^3/uL (0-0.7); Absolute Lymphocytes 1.3 10^3/uL (1.2-3.4); Absolute Monocytes 0.5 10^3/uL (0.1-0.6); Absolute Neutrophils 2.8 10^3/uL (1.4-6.5); Hematocrit 38.3 % (37.0-47.0); Hemoglobin 12.6 g/dL (12.0-16.0); Mean Corp Hgb Conc. 32.9 g/dL (33.0-37.0); Mean Corpuscular Hgb 30.5 pg (27.0-31.0); Mean Corpuscular Volume 92.7 fL (81.0-99.0); Mean Platelet Volume 11.9 fL (7.4-10.4); Nucleated Red Blood Cells % 0 %; Platelet Count 157 10^3/uL (130-400); Red Blood Cell Count 4.13 10^6/uL (4.20-5.40); White Blood Cell Count 4.7 10^3/uL (4.8-10.8)
[2025-02-01 12:03] LABS: ALT (SGPT) 19 U/L (0-35); AST (SGOT) 21 U/L (14-36); Albumin 4.5 g/dl (3.5-5.0); Alkaline Phosphatase 67 U/L (38-126); Blood Urea Nitrogen 14 mg/dl (7-17); Calcium 9.2 mg/dl (8.4-10.2); Carbon Dioxide 28 mmol/L (22-30); Chloride 112 mmol/L (98-107); Glucose 99 mg/dl (70-99); Potassium 4.3 mmol/L (3.5-5.1); Sodium 142 mmol/L (135-145); Total Bilirubin 0.8 mg/dl (0.2-1.3); Total Cholesterol 247 mg/dl (50-199); Total Protein 6.7 g/dl (6.3-8.2); Triglyceride 84 mg/dl (10-149); Very Low Density Lipoprotein 16 mg/dl (0-30); eGFR > 60.00
[2025-02-01 12:22] LABS: HDL Cholesterol 119 mg/dl; LDL Cholesterol, Calculated 112 mg/dl
[2025-02-01 12:27] LABS: TSH Reflex To Free T4 < 0.02 uIU/ml (0.47-4.68)
[2025-02-01 12:55] LABS: Free T4 1.21 ng/dl (0.78-2.19)
[2025-02-01 14:28] LABS: Intact PTH 96.9 pg/ml (13.6-85.8)
[2025-02-02 21:17] LABS: Thyroglobulin Antibodies <1.5 IU/mL (0.0-4.0); Thyroid Peroxidase Ab (TPO) <0.3 IU/mL (0.0-9.0)
== END ==
LOC: REG 08:55
PROVIDERS: ATTENDING PHYSICIAN Student in an Organized Health Care Education/Training Program
DX: Z63.6 Dependent relative needing care at home (principal); E05.90 Thyrotoxicosis, unspecified without thyrotoxic crisis or storm; E21.3 Hyperparathyroidism, unspecified; E78.00 Pure hypercholesterolemia, unspecified; K62.89 Other specified diseases of anus and rectum; Z00.00 Encounter for general adult medical examination without abnormal findings
CPT/HCPCS: 36415; 80053; 80061; 83970; 84439; 84443; 85025; 86376; 86800

== ENCOUNTER → 2025-09-02 10:11 | Outpatient (REF) | payer MEDICARE, OTHER, SELFPAY ==
[2025-09-02 11:52] LABS: ALT (SGPT) 16 U/L (0-35); AST (SGOT) 22 U/L (14-36); Albumin 4.7 g/dl (3.5-5.0); Alkaline Phosphatase 62 U/L (38-126); Blood Urea Nitrogen 15 mg/dl (7-17); Calcium 10.0 mg/dl (8.4-10.2); Carbon Dioxide 26 mmol/L (22-30); Chloride 103 mmol/L (98-107); Glucose 102 mg/dl (70-99); Potassium 4.3 mmol/L (3.5-5.1); Sodium 137 mmol/L (135-145); Total Protein 7.4 g/dl (6.3-8.2); eGFR > 60.00
[2025-09-02 13:36] LABS: FSH 105.0 mIU/ml
[2025-09-02 13:49] LABS: TSH < 0.02 uIU/ml (0.47-4.68)
[2025-09-02 15:32] LABS: Free T3 4.54 pg/ml (2.77-5.27)
== END ==
LOC: REG 10:11
PROVIDERS: ATTENDING PHYSICIAN Internal Medicine Endocrinology, Diabetes & Metabolism; FAMILY PHYSICIAN Student in an Organized Health Care Education/Training Program
DX: E05.90 Thyrotoxicosis, unspecified without thyrotoxic crisis or storm (principal); E34.9 Endocrine disorder, unspecified
CPT/HCPCS: 36415; 80053; 82330; 83001; 83002; 83520; 83970; 84146; 84439; 84443; 84445; 84481

== ENCOUNTER → 2025-09-03 07:46 | Outpatient (REF) | payer MEDICARE, OTHER, SELFPAY | LOC: PAVMRI 07:46 | PROVIDERS: ATTENDING PHYSICIAN Specialist; FAMILY PHYSICIAN Student in an Organized Health Care Education/Training Program | DX: M25.562 Pain in left knee (principal) | CPT/HCPCS: 73721 ==